=== PATIENT | male | born 1985 | race Caucasian/White ===

== ENCOUNTER 2023-04-28 20:34 | Emergency (ER) | payer MEDICAID ==
[~2023-04-28] VITALS: Ht 182.9 cm; Wt 93.0 kg
[2023-04-28 20:47] VITALS: BP 141/86; PULSE 107; RESP 12; TEMP 98.4; O2SAT 100
== END 2023-04-29 04:07 | disposition left against medical advice (07) ==
LOC: ER 20:34
DX: R00.2 Palpitations (principal); Z53.21 Procedure and treatment not carried out due to patient leaving prior to being seen by health care provider
CPT/HCPCS: 93005; 99281